=== PATIENT | female | born 1955 | race Caucasian/White ===

== ENCOUNTER 2017-09-20 07:29 | Outpatient (CLI) | payer BC ==
--- NOTE | 2017-09-20 08:16 | ULT ---
ULTRASOUND ABDOMEN COMPLETE COMPARISON: Reference is made to 12/26/11 right upper quadrant ultrasound. CLINICAL HISTORY: Abdominal pain. TECHNIQUE: Stanley-scale ultrasound evaluation of the liver, gallbladder, spleen, pancreas, common bile duct, kidne ys, abdominal aorta, and inferior vena cava (IVC). FINDINGS: There is no focal hepatic lesion. The gallbladder is surgically absent. The common duct is normal i n caliber at 30 mm. No acute abnormality of the kidneys or spleen. No ascites or additional signifi cant abnormality of the abdomen evident by sonographic evaluation. IMPRESSION: 1. No acute abnormalities of the abdomen. 2. Status post cholecystectomy. POS: [facility]
== END 2017-09-20 07:30 | disposition home or self-care (01) ==
LOC: ULT 07:29
PROVIDERS: ATTEND Family Medicine
DX: R10.13 Epigastric pain (principal); Z90.49 Acquired absence of other specified parts of digestive tract
CPT/HCPCS: 76700

== ENCOUNTER 2017-10-14 07:27 | Outpatient (CLI) | payer BC ==
[2017-10-14 08:30] LABS: Estimated GFR-MDRD - POC Greater than 90
--- NOTE | 2017-10-14 10:21 | CT ---
CT OF ABDOMEN AND PELVIS PERFORMED WITH INTRAVENOUS CONTRAST ENHANCEMENT: HISTORY: Right-sided abdomen pain, diarrhea. History of cervical and uterine cancer and partial hysterectomy, cholecystectomy, and ovarian cyst removal. COMPARISON: 07/16/08 study. FINDINGS: There is some gravity-dependent atelectasis. The liver, spleen, and pancreas regions appear unremarkable. The gallbladder has been removed. Right and left adrenal glands are normal in size and appearance. Right and left kidneys are normal i n appearance. There is no significant periaortic or mesenteric adenopathy. CT OF PELVIS PERFORMED WITH CONTRAST ENHANCEMENT: The appendix is normal. There is no adenopathy, mass, or free fluid. Review of osseous structures showed no significant findings. IMPRESSION: 1. No acute abnormalities of the abdomen or pelvis. 2. Postop cholecystectomy change. POS: [facility]
[2017-10-14] MEDS ORDERED: Iopamidol 370 76% 100 ML VIAL ONE (11:08)
== END 2017-10-14 07:28 | disposition home or self-care (01) ==
LOC: CT 07:27
PROVIDERS: ATTEND Internal Medicine Gastroenterology
DX: R10.11 Right upper quadrant pain (principal); R19.7 Diarrhea, unspecified; Z90.49 Acquired absence of other specified parts of digestive tract
CPT/HCPCS: 74177; 82565

== ENCOUNTER 2018-04-01 15:21 | Outpatient (CLI) | payer BC | END 2018-04-01 15:22 | disposition home or self-care (01) | LOC: BICMAMMO 15:21 | PROVIDERS: ATTEND Family Medicine | DX: Z12.31 Encounter for screening mammogram for malignant neoplasm of breast (principal); R92.1 Mammographic calcification found on diagnostic imaging of breast | CPT/HCPCS: 77063; 77067 ==

== ENCOUNTER 2019-04-03 14:33 | Outpatient (CLI) | payer BC ==
--- NOTE | 2019-04-03 16:07 | MMO ---
Bilateral MAMMO Bilat Screen [facility]. CLINICAL HISTORY: Patient is 64 years old and is seen for screening. The patient has no family history of breast cancer. The patient has a history of cervical cancer at age 31. VIEWS: The views performed were: bilateral craniocaudal with tomosynthesis and bilateral mediolateral oblique with tomosynthesis. FILMS COMPARED: The present examination has been compared to a prior imaging study performed at [facility] on 04/01/2018. MAMMOGRAM FINDINGS: There are scattered fibroglandular densities. There are no suspicious masses, suspicious calcifications, or new areas of architectural distortion. IMPRESSION: THERE IS NO MAMMOGRAPHIC EVIDENCE OF MALIGNANCY. A ROUTINE FOLLOW-UP MAMMOGRAM IN 1 YEAR IS RECOMMENDED. THE RESULTS OF THIS EXAM WERE SENT TO THE PATIENT. ACR BI-RADS Category 1 - Negative MAMMOGRAPHY NOTE: 1. A negative mammogram report should not delay a biopsy if a dominant of clinically suspicious mass is present. 2. Approximately 10% to 15% of breast cancers are not detected by mammography. 3. Adenosis and dense breasts may obscure an underlying neoplasm. Reported by: SANDRA SHERIFF MD Electonically Signed: [id number]
--- NOTE | 2019-04-03 16:11 | BD ---
Exam: DEXA Bone Density 04/24/19 HISTORY: 64-year-old postmenopausal female for screening. COMPARISON: 03/19/17 FINDINGS: Lumbar Spine: BMD (g/cm2) T-SCORE L1 0.909 -0.7 L2 0.862 -1.5 L3 0.835 -2.3 L4 0.829 -2.1 L1-L4 0.859 -1.7 Left Femoral Neck: 0.643 -1.9 Total Proximal Left Femur: 0.832 -0.9 Impression: Osteopenia. This patient has a ten year WHO fracture risk of a major osteoporotic fracture of 9.7% an d hip fracture of 1.2%. POS: [facility]
== END 2019-04-03 14:34 | disposition home or self-care (01) ==
LOC: BICMAMMO 14:33
PROVIDERS: ATTEND Family Medicine
DX: Z12.31 Encounter for screening mammogram for malignant neoplasm of breast (principal); M85.89 Other specified disorders of bone density and structure, multiple sites; Z78.0 Asymptomatic menopausal state; Z85.41 Personal history of malignant neoplasm of cervix uteri
CPT/HCPCS: 77063; 77067; 77080